=== PATIENT | female | born 1955 | race Caucasian/White ===

== ENCOUNTER 2020-12-16 09:04 | Inpatient (IN) ==
--- NOTE | 2020-12-16 09:19 | Emergency Department Note ---
History of Present Illness General Chief complaint: Dental/Oral Stated complaint: DENTAL PAIN INFECTED TOOTH Time Seen by Provider: 12/16/20 09:18 History of Present Illness Maximum Pain Intensity: 8 This is a 65-year-old female that presents to the emergency department via private vehicle with complaints of "dental pain, infected tooth". The patient notes that she recently returned to the area from [place] as of yesterday. She notes that she is visiting the area for short period of time. She states that this past she began with some pain to the right anterior face just to the lateral aspect of the nose and then notes that since then has had progression to include erythema and edema to the right side of the face. She now note swelling from the right eye tracking inferiorly to the right anterior neck region. She also notes some pain within the right side of the dentition. Current pain 03/20. She notes associated nausea. She denies any fevers, chills, shortness of breath. She attempted to reach out to dentistry however notes they are not open until Friday. She has an allergy to penicillin/amoxicillin. No drooling, trouble breathing or trouble swallowing. Home Medications Medication Instructions Recorded Confirmed Type acetaminophen [Tylenol] 650 mg PO QID PRN 12/16/20 12/16/20 History benazepril 20 mg PO BID 12/16/20 12/16/20 History hydrochlorothiazide 12.5 mg PO BID 12/16/20 12/16/20 History levothyroxine [Synthroid] 112 mcg PO DAILY 12/16/20 12/16/20 History Allergies Allergy/AdvReac Type Severity Reaction Status Date / Time amoxicillin Allergy Rash Unverified 12/16/20 10:38 Penicillins Allergy Rash Verified 12/16/20 09:12 Past Med/Surg History Medical History HTN (hypertension) Hypothyroidism Tooth infection Vitamin D deficiency Surgical History H/O tooth extraction Family History (Updated 12/16/20 @ 12:49 by PRISCILA Purdy) Mother COPD (chronic obstructive pulmonary disease) Heart disease Hypertension Dyslipidemia Social History Smoking Status: Former smoker Cigarettes Per Day: 0 - 1; Smoking End Date: 2016; Second Hand Exposure: No; Do You Dip or Chew Tobacco: No; Tobacco Cessation Education Requested by Patient: No Hx Alcohol Use: Yes Alcohol type: wine Hx Substance Use: No Preferred Language: P[place] Communication Ability: Effective Chemistry Manager Required: No Beliefs That Will Affect Care: None Current Living Situation: Spouse Other Information That Helps Us Care for You: No Feels Safe at Home: Yes Safety Concerns: Feels Safe At This Time Assistive Devices: Glasses Review of Systems A total of 10 systems reviewed and were otherwise negative Physical Exam Vital Signs Vital Signs - 24 hr 12/16/20 09:09 12/16/20 09:59 12/16/20 11:00 Temperature 36.2 C L Temperature Source Temporal Artery Scan Pulse Rate 92 H Pulse Rate [Right Finger] 86 88 Pulse Rhythm Regular Pulse Strength Normal Respiratory Rate 20 20 20 Respiratory Effort / Characteristics Non-Labored Spontaneous Non-Labored Spontaneous Non-Labored Spontaneous Respiratory Depth Normal Normal Normal Respiratory Pattern Regular Regular Regular Blood Pressure 142/86 H Blood Pressure [Right Arm] 132/82 141/86 H Blood Pressure Mean 104 Blood Pressure Mean [Right Arm] 98 104 Blood Pressure Position Sitting Blood Pressure Position [Right Arm] Lying Lying Pulse Oximetry 98 98 98 Oxygen Delivery Method Room Air Room Air Room Air Sepsis Recent Fever Within 48 Hours No Sepsis New/Unexplained Change in Mental Status No Sepsis Action Taken by Nursing No Action Required 12/16/20 11:29 12/16/20 12:00 12/16/20 12:30 Temperature Temperature Source Pulse Rate Pulse Rate [Right Finger] 88 92 H 88 Pulse Rhythm Pulse Strength Respiratory Rate 20 20 20 Respiratory Effort / Characteristics Non-Labored Spontaneous Non-Labored Spontaneous Non-Labored Spontaneous Respiratory Depth Normal Normal Normal Respiratory Pattern Regular Regular Regular Blood Pressure Blood Pressure [Right Arm] 139/94 147/101 H 151/91 H Blood Pressure Mean Blood Pressure Mean [Right Arm] 109 116 111 Blood Pressure Position Blood Pressure Position [Right Arm] Lying Lying Lying Pulse Oximetry 97 97 97 Oxygen Delivery Method Room Air Room Air Room Air Sepsis Recent Fever Within 48 Hours Sepsis New/Unexplained Change in Mental Status Sepsis Action Taken by Nursing VITAL SIGNS - Vital signs and nursing notes were reviewed. Stable and afebrile. GENERAL -65-year-old female appearing her stated age who is in no acute distress. Communicates well with provider and answers questions appropriately. SKIN -there is erythema with edema noted to the right periorbital region inferiorly tracking from that region inferior to the right anterior neck. This involves the right perioral region as well. HEAD - NC/AT. EYES - PERRL with EOMI bilaterally. Sclera anicteric. EARS - No deformities of external structures noted on gross examination bilaterally. NOSE - Midline and without cyanosis. No epistaxis or purulent drainage noted. Septum midline without deviation or septal hematoma noted. MOUTH/OROPHARYNX - Without perioral cyanosis. Buccal mucosa pink and moist and without leukoplakia. Tongue midline with equal elevation of palate bilaterally. No tonsillar hypertrophy, erythema, or exudates noted. Fair dentition noted. NECK - Neck with FROM. Supple to palpation. Mild right anterior cervical lymphadenopathy noted. No nuchal rigidity. Mild tenderness overlying the erythematous soft tissues on the right. LUNGS - Chest wall symmetric without accessory muscle use, intercostals retractions, or central cyanosis. Normal vesicular breath sounds CTA B/L. No wheezes, rales, or rhonchi appreciated. CARDIAC - RRR with S1/S2. No murmur, rubs, or gallops appreciated. NEUROLOGIC - Cranial nerves II through XII grossly intact. PSYCH - A&Ox3 and cooperates fully with examiner. Pt is very pleasant and interacts well with examiner. Course Administered Medications Chlorhexidine Gluconate (Chlorhexidine Gluconate 0.12% 480 Ml) 15 ml MT QID CARY Stop: 01/15/21 12:59 Last Admin: 12/16/20 16:04 Dose: 15 ml Documented by: [id number] Ibuprofen (Ibuprofen 600 Mg Tab) 600 mg PO Q6H PRN PRN Reason: pain or T >101.5 Stop: 01/15/21 13:26 Last Admin: 12/16/20 13:52 Dose: 600 mg Documented by: [id number] Discontinued Medications Ceftriaxone Sodium (Rocephin) 2,000 mg in 70 mls @ 140 mls/hr IV NOW STA Stop: 12/16/20 10:07 Last Infusion: 12/16/20 10:18 Dose: 0 mls/hr Documented by: [id number] Admin: 12/16/20 09:48 Dose: 140 mls/hr Documented by: [id number] Clindamycin Phosphate 600 mg/ (Dextrose) 54 mls @ 100 mls/hr IV ONE ONE Stop: 12/16/20 11:40 Last Infusion: 12/16/20 11:57 Dose: 0 mls/hr Documented by: [id number] Admin: 12/16/20 11:24 Dose: 100 mls/hr Documented by: [id number] Ioversol (Optiray 300 100ml) 90 ml IV ONCE ONE Stop: 12/16/20 09:35 Last Admin: 12/16/20 09:34 Dose: 90 ml Documented by: [id number] Medical Decision Making Laboratory Data Result diagrams: 12/16/20 09:22 12/16/20 09:22 Lab Results 12/16/20 12/16/20 12/16/20 Range/Units 09:22 09:22 09:22 WBC 6.04 (4.8-10.8) K/uL RBC 4.30 (4.2-5.4) M/uL Hgb 13.6 (12.0-16.0) g/dL Hct 40.6 (37-47) % MCV 94.4 (80-100) fL MCH 31.6 (25-34) pg MCHC 33.5 (32-36) g/dL RDW Std Deviation 45.4 (36.4-46.3) fL RDW Coeff of Ele 13.2 (11.5-14.5) % Plt Count 246 (130-400) K/uL MPV 11.3 H (7.4-10.4) fL Immature Gran % (Auto) 0.2 % Neut % (Auto) 72.8 % Lymph % (Auto) 13.6 % Daggett % (Auto) 12.9 % Eos % (Auto) 0.3 % Baso % (Auto) 0.2 % Neut # (Auto) 4.40 (1.4-6.5) K/uL Lymph # (Auto) 0.82 L (1.2-3.4) K/uL Daggett # (Auto) 0.78 H (0.11-0.59) K/uL Eos # (Auto) 0.02 (0-0.5) K/uL Baso # (Auto) 0.01 (0-0.2) K/uL Immature Gran # (Auto) 0.01 (0.00-0.02) K/uL Sodium 139 (136-145) mmol/L Potassium 3.2 L (3.5-5.1) mmol/L Chloride 104 (98-107) mmol/L Carbon Dioxide 29 (21-32) mmol/L Anion Gap 6.0 (3-11) BUN 12 (7-18) mg/dl Creatinine 1.03 (0.6-1.2) mg/dl Est Cr Clr Drug Dosing 71.0 ml/min Est GFR ( Amer) 66.5 Est GFR (Non-Af Amer) 57.4 BUN/Creatinine Ratio 11.3 (10-20) Glucose 96 (70-99) mg/dl Lactate (0.4-2.0) mmol/L Calcium 9.4 (8.5-10.1) mg/dl Total Bilirubin 0.7 (0.2-1) mg/dl AST 10 L (15-37) U/L ALT 15 (12-78) U/L Alkaline Phosphatase 102 (45-117) U/L Total Protein 7.8 (6.4-8.2) gm/dl Albumin 3.6 (3.4-5.0) gm/dl Globulin 4.2 H (2.5-4.0) gm/dl Albumin/Globulin Ratio 0.9 (0.9-2) Procalcitonin < 0.05 (0-0.5) ng/ml COVID-19 Eval Order SARS-CoV-2 (PCR) (Negative) Influenza Type A (PCR) (Neg) Influenza Type B (PCR) (Neg) RSV (RT-PCR) (Neg) 12/16/20 12/16/20 12/16/20 Range/Units 09:52 09:52 10:04 WBC (4.8-10.8) K/uL RBC (4.2-5.4) M/uL Hgb (12.0-16.0) g/dL Hct (37-47) % MCV (80-100) fL MCH (25-34) pg MCHC (32-36) g/dL RDW Std Deviation (36.4-46.3) fL RDW Coeff of Ele (11.5-14.5) % Plt Count (130-400) K/uL MPV (7.4-10.4) fL Immature Gran % (Auto) % Neut % (Auto) % Lymph % (Auto) % Daggett % (Auto) % Eos % (Auto) % Baso % (Auto) % Neut # (Auto) (1.4-6.5) K/uL Lymph # (Auto) (1.2-3.4) K/uL Daggett # (Auto) (0.11-0.59) K/uL Eos # (Auto) (0-0.5) K/uL Baso # (Auto) (0-0.2) K/uL Immature Gran # (Auto) (0.00-0.02) K/uL Sodium (136-145) mmol/L Potassium (3.5-5.1) mmol/L Chloride (98-107) mmol/L Carbon Dioxide (21-32) mmol/L Anion Gap (3-11) BUN (7-18) mg/dl Creatinine (0.6-1.2) mg/dl Est Cr Clr Drug Dosing ml/min Est GFR ( Amer) Est GFR (Non-Af Amer) BUN/Creatinine Ratio (10-20) Glucose (70-99) mg/dl Lactate 1.1 (0.4-2.0) mmol/L Calcium (8.5-10.1) mg/dl Total Bilirubin (0.2-1) mg/dl AST (15-37) U/L ALT (12-78) U/L Alkaline Phosphatase (45-117) U/L Total Protein (6.4-8.2) gm/dl Albumin (3.4-5.0) gm/dl Globulin (2.5-4.0) gm/dl Albumin/Globulin Ratio (0.9-2) Procalcitonin (0-0.5) ng/ml COVID-19 Eval Order CovFluRsv at [facility] SARS-CoV-2 (PCR) NEGATIVE (Negative) Influenza Type A (PCR) Negative (Neg) Influenza Type B (PCR) Negative (Neg) RSV (RT-PCR) Negative (Neg) Imaging Data Radiologist's Impression: Soft Tissue Neck CT 12/16/20 09:26 CT OF THE NECK WITH IV CONTRAST CLINICAL HISTORY: R facial and R neck edema, erythema COMPARISON STUDY: No previous studies for comparison. TECHNIQUE: Following IV administration of 90 mL of Optiray, helical axial images of the neck were obtained. Sagittal and coronal reconstructions were viewed. Automated exposure control was utilized for the study. A dose lowering technique was utilized adhering to the principles of ALARA. CT DOSE: 555.75 mGy.cm FINDINGS: Visualized portions of the intracranial contents are unremarkable. Lung apices are clear. There is no cervical lymphadenopathy. Epiglottis is normal. Major vasculature of the neck is patent. Note is made of moderate right facial infiltration overlying the right aspects of the mandible and maxilla. There is a cavity of the right maxillary first bicuspid. There is associated periapical lucency with suspected tiny overlying abscess along the anterior aspect of the maxilla that measures approximately 1 x 0.2 cm. No additional fluid collections are present. IMPRESSION: Right facial infiltration suggestive of cellulitis. This is likely odontogenic in etiology and likely related to a cavity of the right maxillary first bicuspid with tiny overlying abscess. ACT 112: Negative or not required by law. Electronically signed by: Paramjit Ford M.D. 12/16/2020 11:01 AM MDM Narrative Patient was seen and evaluated as above in room C02. Review was performed of nursing notes and vital signs. After obtaining a thorough history and physical examination the above work up was performed. Patient presents to us today with right-sided facial swelling, erythema. On examination there is a fair amount of erythema and edema to the right side of the face extending from the right inferior orbital region to the right anterior neck. There is no drooling, str idor, trismus or wheezing on exam. No tripoding. Options of care were discussed with the patient. There is a fair amount of what appears to be cellulitis on examination involving a large portion of the patient's face on the right side. Options of care were discussed with the patient. IV access established. Labs were drawn. There is no leukocytosis or anemia. Mild hypokalemia 3.2. Covid testing negative. Pro-Valdemar normal. Blood cultures pending. Lactic normal. CT scan as above. Right facial infiltration suggestive of cellulitis. Likely odontogenic in etiology. Given the extent and speed of progression I do believe that further evaluation and management in the inpatient setting is warranted. I discussed this recommendation to the patient. At this point I do not believe that it would be safe to discharge the patient with simple p.o. antibiotics, rather believe that further management here in the hospital is reasonable. She was given IV Rocephin and IV clindamycin here in the ED. Case was then discussed with the hospitalist. Please refer to further documentation regarding her stay. GCS: 15 In the evaluation and treatment of this patient, the following differential diagnoses were considered: Periapical Abscess, Osteonecrosis of the Jaw, Dental Fracture, Dental Caries, Kenneth's Angina, Vincent's Angina, Facial Cellulitis. Impression & Plan Cellulitis, face, Edema of face, Cellulitis of neck, Dental abscess Discharge Plan Visit Data Chief Complaint: Dental/Oral Stated Complaint: DENTAL PAIN INFECTED TOOTH ED Provider: Devante Mcclain ED Midlevel Provider: Cristian Beal Discharge Problem: Cellulitis, face, Edema of face, Cellulitis of neck, Dental abscess Patient Disposition: Admitted As Inpatient Condition: Good Discharge Instructions Interventions: ED Discharge Assessment Last Done: 12/16/20 13:04
[2020-12-16] MEDS ORDERED: OPTIRAY 300 100mL IV ONE (09:34)
[2020-12-16 09:36] LABS: Basophils # (auto) 0.01 K/uL (0-0.2); Basophils % (auto) 0.2 %; Eosinophils # (auto) 0.02 K/uL (0-0.5); Eosinophils % (auto) 0.3 %; Hematocrit (blood only) 40.6 % (37-47); Hemoglobin 13.6 g/dL (12.0-16.0); Immature Granulocytes # (auto) 0.01 K/uL (0.00-0.02); Immature Granulocytes % (auto) 0.2 %; Lymphocytes # (auto) 0.82 K/uL (1.2-3.4); Lymphocytes % (auto) 13.6 %; Mean Corpuscular Hemoglobin 31.6 pg (25-34); Mean Corpuscular Hgb Conc 33.5 g/dL (32-36); Mean Corpuscular Volume 94.4 fL (80-100); Mean Platelet Volume 11.3 fL (7.4-10.4); Monocytes # (auto) 0.78 K/uL (0.11-0.59); Monocytes % (auto) 12.9 %; Neutrophils % (auto) 72.8 %; Platelet Count 246 K/uL (130-400); RDW Coefficient of Variation 13.2 % (11.5-14.5); RDW Standard Deviation 45.4 fL (36.4-46.3); White Blood Count 6.04 K/uL (4.8-10.8)
[2020-12-16] MEDS ORDERED: cefTRIAXone SODIUM 2,000 MG/70 ML BAG IV STA (09:38)
[2020-12-16 09:54] LABS: Albumin Level 3.6 gm/dl (3.4-5.0); BUN Creatinine Ratio 11.3 (10-20); Calcium 9.4 mg/dl (8.5-10.1); Est GFR (African American) 66.5; Est GFR (Non-African American) 57.4; Potassium 3.2 mmol/L (3.5-5.1)
[2020-12-16 09:57] LABS: Albumin Globulin Ratio 0.9 (0.9-2); Bilirubin,Total 0.7 mg/dl (0.2-1); Globulin 4.2 gm/dl (2.5-4.0); Total Protein 7.8 gm/dl (6.4-8.2)
[2020-12-16 10:42] LABS: Influenza A virus by PCR Negative (Neg); Influenza B virus by PCR Negative (Neg); RSV by PCR Negative (Neg); SARS CoV2 RNA(COVID-19) InHosp NEGATIVE (Negative)
--- NOTE | 2020-12-16 11:02 | CT Scan Report ---
CT OF THE NECK WITH IV CONTRAST CLINICAL HISTORY: R facial and R neck edema, erythema COMPARISON STUDY: No previous studies for comparison. TECHNIQUE: Following IV administration of 90 mL of Optiray, helical axial images of the neck were ob tained. Sagittal and coronal reconstructions were viewed. Automated exposure control was utilized f or the study. A dose lowering technique was utilized adhering to the principles of ALARA. CT DOSE: 555.75 mGy.cm FINDINGS: Visualized portions of the intracranial contents are unremarkable. Lung apices are clear. There is no cervical lymphadenopathy. Epiglottis is normal. Major vasculature of the neck is patent. Note is made of moderate right facial infiltration overlying the right aspects of the mandible and ma xilla. There is a cavity of the right maxillary first bicuspid. There is associated periapical lucenc y with suspected tiny overlying abscess along the anterior aspect of the maxilla that measures approx imately 1 x 0.2 cm. No additional fluid collections are present. IMPRESSION: Right facial infiltration suggestive of cellulitis. This is likely odontogenic in etiolo gy and likely related to a cavity of the right maxillary first bicuspid with tiny overlying abscess. ACT 112: Negative or not required by law. Electronically signed by: Paramjit Ford M.D. 12/16/2020 11:01 AM
[2020-12-16] MEDS ORDERED: CLINDAMYCIN 600 MG in DEXTROSE 5% 50 ML IV ONE (11:08)
--- NOTE | 2020-12-16 12:30 | History & Physical Report ---
Date of Service December 16, 2020 Assessment & Plan (1) Tooth infection: Tooth #4-5 with erythema and small abscess noted on CT scan - erysipelas cellulitis as above - Clindamycin 450 mg PO q6 hours - Received 600 mg IV in the ER with decrease in erythema and lower lid involvement already - Blood cultures x2- however patient already received her IV clindamycin - Chlorhexidine Gluconate mouth swish and spit QID - Patient not from area is attempting to find local Dentist for appointment - Tylenol and Motrin for pain - Can apply Ice packs if desired - Can have regular diet, instructed to obviously chew and swallow on unaffected side. - If abscess becomes larger and/or complicated- consult EENT (2) HTN (hypertension): Continue Benazepril 20 BID Continue HCTZ 12.5 mg PO BID (3) Hypothyroidism: Continue Synthroid 112 MCG daily (4) DVT prophylaxis: SCD's, Lovenox, early ambulation CODE: FULL Admit for observation of resolution of cellulitis and systemic symptoms. History of Present Illness Primary Care Provider: NO PCP 65 YOF comes to the hospital this morning concern for facial swelling and tooth pain. The patient is not from the area, and was flying in from [place]. into Friday she was having increase in pain and discomfort to her right upper tooth #4-5 which is fractured. The patient thinks she did that a couple of months ago and unsure when. She was not having any difficulty until she was getting ready to leave for her flight. She felt like she was getting a sinus infection with some fullness to her maxillary and frontal sinus on the right side. She had some nasal congestion and fullness, she started some over the counter sinus medication and proceeded to her travel. The patient got here and started to notice some increasing redness to her face yesterday with pain to her sinuses and to her ear. She got up this morning with erythema to her right face and lower eyelid so she came to the emergency room. In the ER she had a soft tissue of the neck and face CT scan performed and was started on IV Clindamycin secondary to her allergy to PCN and Amoxicillin. Patient reports no bone pain just discomfort where her lymphnodes are. She has no difficulty swallowing. No evidence of sepsis or organ dysfunction on her labs or vital signs. Patient will be observed overnight for response to oral antibiotics. The patient is not immunocompromised, has a history of Hypothyroidism, and HTN. She is fully vaccinated for COVD 19 and her Influenza/RSV/COVID tests are negative Allergies Allergy/AdvReac Type Severity Reaction Status Date / Time amoxicillin Allergy Rash Unverified 12/16/20 10:38 Penicillins Allergy Rash Verified 12/16/20 09:12 Home Medications Medication Instructions Recorded Confirmed Type acetaminophen [Tylenol] 650 mg PO QID PRN 12/16/20 12/16/20 History benazepril 20 mg PO BID 12/16/20 12/16/20 History hydrochlorothiazide 12.5 mg PO BID 12/16/20 12/16/20 History levothyroxine [Synthroid] 112 mcg PO DAILY 12/16/20 12/16/20 History Past Med/Surg History Medical History (Updated 12/16/20 @ 13:03 by PRISCILA Purdy) HTN (hypertension) Hypothyroidism Tooth infection Vitamin D deficiency Surgical History (Updated 12/16/20 @ 12:42 by PRISCILA Purdy) H/O tooth extraction Family History (Updated 12/16/20 @ 12:49 by PRISCILA Purdy) Mother COPD (chronic obstructive pulmonary disease) Heart disease Hypertension Dyslipidemia Social History Smoking Status: Former smoker Cigarettes Per Day: 0 - 1; Smoking End Date: 2016; Second Hand Exposure: No; Do You Dip or Chew Tobacco: No; Tobacco Cessation Education Requested by Patient: No Hx Alcohol Use: Yes Alcohol type: wine Hx Substance Use: No Preferred Language: East Timorese Communication Ability: Effective 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 Beliefs That Will Affect Care: None Current Living Situation: Spouse Other Information That Helps Us Care for You: No Feels Safe at Home: Yes Safety Concerns: Feels Safe At This Time Assistive Devices: Glasses Review of Systems Review of Systems: REVIEW OF SYSTEMS: Constitutional: No fever, sweats or chills Eyes: (+) right face pain, No diplopia, no worsening or blurred vision ENT: (+) right ear discomfort, normal hearing, no trouble swallowing Respiratory: No cough, sputum, dyspnea at rest or on exertion Cardiovascular: No chest pain, tightness or palpitations Abdomen: No pain, nausea, vomiting, diarrhea or constipation Musculoskeletal: No joint pain, calf pain, swelling Neurologic: No weakness, numbness/tingling, or balance problems Psychiatric: No anxiety or depression Skin: (+) erythema and swelling to right face Physical Exam Physical Exam: PHYSICAL EXAM: General: awake, alert, no apparent distress Head: Normocephalic, atraumatic ENT: Erysipelas appearance to right lower eyelid, nasolabial, cheek and neck, enlarged tender lymph nodes to submandibular, anterior cervical, and right auricular lymph nodes, no pharyngeal exudate, right 4th or 5th tooth fracture, with erythema at the gum, small amount of purulence draining, mucous membranes moist. No difficulty swallowing, voice is normal. Neuro: AAO x 3, PERRL, EOMI, speech clear and appropriate, strength intact bilaterally 5/5, sensation intact and equal all extremities and dermatomes, no pronator drift Chest: equal rise and fall of the chest, no accessory muscle use, no heaves or thrills, Clear to auscultation, on room air, Cardiac: Regular rate and rhythm, telemetry reviewed, skin warm dry, cap refill <3 seconds, peripheral pulses +2 no JVD, no murmur, No edema GI: NABS x 4 quadrants, soft, nontender to palpation, no rebound, guarding or tenderness : Spontaneously voiding, no pain, no CVA tenderness, Extremities: Normal inspection, no peripheral edema or erythema, calfs nontender to palpation Psych: Normal mood and affect Skin: as above Results & Data Results & Data ([facility]) Vital Signs (Past 12 Hours) Vital Signs Temp Pulse Pulse Resp BP BP Pulse Ox 12/16/20 12:00 92 H 20 147/101 H 97 12/16/20 11:29 88 20 139/94 97 12/16/20 11:00 88 20 141/86 H 98 12/16/20 09:59 86 20 132/82 98 12/16/20 09:09 36.2 C L 92 H 20 142/86 H 98 Laboratory Results Abnormal lab results 12/16/20 12/16/20 Range/Units 09:22 09:22 MPV 11.3 H (7.4-10.4) fL Lymph # (Auto) 0.82 L (1.2-3.4) K/uL Door # (Auto) 0.78 H (0.11-0.59) K/uL Potassium 3.2 L (3.5-5.1) mmol/L AST 10 L (15-37) U/L Globulin 4.2 H (2.5-4.0) gm/dl Diagnostic Findings Soft Tissue Neck CT 12/16/20 09:26 CT OF THE NECK WITH IV CONTRAST CLINICAL HISTORY: R facial and R neck edema, erythema COMPARISON STUDY: No previous studies for comparison. TECHNIQUE: Following IV administration of 90 mL of Optiray, helical axial images of the neck were obtained. Sagittal and coronal reconstructions were viewed. Automated exposure control was utilized for the study. A dose lowering technique was utilized adhering to the principles of ALARA. CT DOSE: 555.75 mGy.cm FINDINGS: Visualized portions of the intracranial contents are unremarkable. Lung apices are clear. There is no cervical lymphadenopathy. Epiglottis is normal. Major vasculature of the neck is patent. Note is made of moderate right facial infiltration overlying the right aspects of the mandible and maxilla. There is a cavity of the right maxillary first bicuspid. There is associated periapical lucency with suspected tiny overlying abscess along the anterior aspect of the maxilla that measures approximately 1 x 0.2 cm. No additional fluid collections are present. IMPRESSION: Right facial infiltration suggestive of cellulitis. This is likely odontogenic in etiology and likely related to a cavity of the right maxillary first bicuspid with tiny overlying abscess. Electronically signed by: Paramjit Ford M.D. 12/16/2020 11:01 AM Medications Administered Discontinued Medications Ceftriaxone Sodium (Rocephin) 2,000 mg in 70 mls @ 140 mls/hr IV NOW STA Stop: 12/16/20 10:07 Last Infusion: 12/16/20 10:18 Dose: 0 mls/hr Documented by: [id number] Admin: 12/16/20 09:48 Dose: 140 mls/hr Documented by: [id number] Clindamycin Phosphate 600 mg/ (Dextrose) 54 mls @ 100 mls/hr IV ONE ONE Stop: 12/16/20 11:40 Last Admin: 12/16/20 11:24 Dose: 100 mls/hr Documented by: [id number] Ioversol (Optiray 300 100ml) 90 ml IV ONCE ONE Stop: 12/16/20 09:35 Last Admin: 12/16/20 09:34 Dose: 90 ml Documented by: [id number] Home Medications acetaminophen [Tylenol] 650 mg PO QID PRN 12/16/20 [History Confirmed 12/16/20] benazepril 20 mg PO BID 12/16/20 [History Confirmed 12/16/20] hydrochlorothiazide 12.5 mg PO BID 12/16/20 [History Confirmed 12/16/20] levothyroxine [Synthroid] 112 mcg PO DAILY 12/16/20 [History Confirmed 12/16/20] Active Medications Chlorhexidine Gluconate (Chlorhexidine Gluconate 0.12% 480 Ml) 15 ml MT QID CARY Stop: 01/15/21 12:59 ECG Additional Comments: No EKG Code Status & VTE Plan Code Status CODE: FULL VTE: SCD's, ambulation, Lovenox 40mg SubQ daily VTE Prophylaxis Plan VTE Prophylaxis will be ordered: Yes Supervising Physician Co-Signing Physician Notes Patient seen and examined with nurse practitioner, agree with his note above. Patient appears to have a dental infection from a right upper tooth. A CT scan results reviewed. Patient is having no warning signs symptoms such as difficulty swallowing or breathing. Exam is as noted above, patient has no evidence of drooling. Lungs are clear. Heart is regular no murmur. Plan to treat with oral clindamycin. Will observe overnight, if swelling improves, patient may be able to be discharged to close outpatient follow-up and eventual dental evaluation. PG Care Time/CCT Total # of Minutes Spent Total Time Spent with Patient: Total time spent is greater than 50% in coordination of care (as documented) at patient's floor/unit and/or counseling patient: Coding Level of Care Code 78118 OBS Care - Level 3 Diagnoses Tooth infection K04.7 HTN (hypertension) I10 Hypertension type: essential hypertension Hypothyroidism E03.9 Hypothyroidism type: unspecified DVT prophylaxis Z29.9 (1) Hypothyroidism Hypothyroidism type: unspecified Qualified Code(s): E03.9 - Hypothyroidism, unspecified (2) HTN (hypertension) Hypertension type: essential hypertension Qualified Code(s): I10 - Essential (primary) hypertension
[2020-12-16] MEDS ORDERED: IBUPROFEN 600 MG TAB PO PRN (13:27)
[2020-12-16] MEDS ORDERED: ACETAMINOPHEN 325 MG TAB PO PRN (13:27)
[2020-12-16] MEDS: CHLORHEXIDINE GLUCONATE 0.12% 480 ML MT SCH ×3 (16:04→21:15)
[2020-12-16] MEDS: ACETAMINOPHEN 325 MG TAB PO PRN ×2 (17:22→21:24)
[2020-12-16] MEDS ORDERED: CLINDAMYCIN HCL 150 MG CAP PO SCH (18:00)
[2020-12-16] MEDS: ENALAPRIL MALEATE 10 MG TAB PO SCH (21:16)
[2020-12-16] MEDS: hydroCHLOROthiazide 25 MG TAB PO SCH (21:17)
[2020-12-17] MEDS: CLINDAMYCIN HCL 150 MG CAP PO SCH ×2 (00:45→05:46)
[2020-12-17] MEDS: LEVOTHYROXINE SODIUM 112 MCG TABLET PO SCH (05:45)
[2020-12-17] MEDS: ACETAMINOPHEN 325 MG TAB PO PRN (05:49)
[2020-12-17 06:27] LABS: Basophils # (auto) 0.01 K/uL (0-0.2); Basophils % (auto) 0.2 %; Eosinophils # (auto) 0.06 K/uL (0-0.5); Hematocrit (blood only) 38.8 % (37-47); Hemoglobin 12.7 g/dL (12.0-16.0); Immature Granulocytes # (auto) 0.01 K/uL (0.00-0.02); Immature Granulocytes % (auto) 0.2 %; Lymphocytes % (auto) 17.2 %; Mean Corpuscular Hgb Conc 32.7 g/dL (32-36); Mean Corpuscular Volume 94.6 fL (80-100); Mean Platelet Volume 11.1 fL (7.4-10.4); Monocytes # (auto) 0.42 K/uL (0.11-0.59); Monocytes % (auto) 7.2 %; Neutrophils # (auto) 4.33 K/uL (1.4-6.5); Neutrophils % (auto) 74.2 %; Platelet Count 251 K/uL (130-400); RDW Coefficient of Variation 13.3 % (11.5-14.5); RDW Standard Deviation 45.8 fL (36.4-46.3); White Blood Count 5.83 K/uL (4.8-10.8)
[2020-12-17 07:03] LABS: BUN Creatinine Ratio 16.1 (10-20); Calcium 9.3 mg/dl (8.5-10.1); Creatinine Clr Calc Pharmacy 79.6 ml/min; Est GFR (African American) 76.3; Est GFR (Non-African American) 65.8; Magnesium 1.9 mg/dl (1.8-2.4); Potassium 3.9 mmol/L (3.5-5.1)
--- NOTE | 2020-12-17 07:41 | Hospitalist Progress Note ---
Date of Service December 17, 2020 Assessment & Plan (1) Tooth infection: Cracked tooth for several weeks prior, now with increased pain/erythema/swelling Erysipelas secondary to dental abscess Soft Tissue Neck CT-- Right facial infiltration suggestive of cellulitis. This is likely odontogenic in etiology and likely related to a cavity of the right maxillary first bicuspid with tiny overlying abscess. OMFS consulted -- plans for OR this afternoon for tx of abscess On Clindamycin due to allergies --> switched to IV while awaiting OR Made NPO NS@75cc/hr x 1 L while NPO --> can d/c following surgery if able to take PO Tylenol IV ordered while npo and morphine for breakthrough pain Blood cultures from ER pending and were repeated by admission team -- follow Chlorhexidine Gluconate mouth swish and spit QID Ice packs if needed EKG pre-op NSR, reported nonspecific T wave abn but looks good, 90bpm. Pre-op CXR pending but sounded good on examination, no abn Labs in AM Hopeful for d/c tomorrow morning if stable (2) HTN (hypertension): Chronic -- low this AM 100/57 On Benazepril 20 BID, HCTZ 12.5mg BID -- will hold and resume in AM if BP tolerates and BMP stable Continue to monitor (3) Hypothyroidism: Continue Synthroid 112 MCG daily (4) DVT prophylaxis: SCD's, Lovenox, early ambulation CODE: FULL Dispo: from [place], [place] this afternoon with Dr. Menon for abscess/tooth extraction Changed to full admission Would like to go home tomorrow morning if stable. (5) Cellulitis, face: (6) Fascial space infection of mouth: Admission and Anticipated Discharge Date Admission Date: December 16, 2020 Subjective Patient evaluated this morning. Doing better. Got tylenol this morning and pain from 10 to 4/10. Erythema improved, less swelling. wash tank tender around infected tooth which has been cracked for some time but never caused issue in the past. Bad experience with hydromorphone in the past. Will order morphine if needed while NPO and utilize oxycodone as needed. Tylenol also available for baseline control. No fever, chills, chest pain, shortness of breath, difficulty swallowing or clearing secretions, abdominal pain, nausea or vomiting or urinary symptoms. She initially thought it was a sinus infection and had been taking OTC sinus decongestant. OR planned this afternoon. She is hopeful for discharge tomorrow morning. Review of Systems Review of Systems: All systems reviewed & are unremarkable except as noted in HPI & below Physical Exam Physical Exam: PHYSICAL EXAM: General: awake, alert, no apparent distress sitting up in bed Head: Normocephalic, atraumatic ENT: Erysipelas appearance to right lower eyelid, nasolabial, cheek and neck, enlarged tender lymph nodes to submandibular, anterior cervical, and right auricular lymph nodes (IMPROVED, LESS ERYTHEMA/SWELLING, SALESPERSON MEN'S HATS IN COLOR), no pharyngeal exudate, right 4th or 5th tooth fracture, with erythema at the gum with fluctuant area surrounding with erythema. No obvious purulant drainage.mucous membranes moist. No difficulty swallowing, voice is normal. Neuro: AAO x 3, PERRL, EOMI, speech clear and appropriate, strength intact bilaterally 5/5, sensation intact and equal all extremities and dermatomes, no pronator drift Chest: equal rise and fall of the chest, no accessory muscle use, no heaves or thrills, Clear to auscultation, on room air, Cardiac: Regular rate and rhythm, telemetry reviewed, skin warm dry, cap refill <3 seconds, peripheral pulses +2 no JVD, no murmur, No edema GI: NABS x 4 quadrants, soft, nontender to palpation, no rebound, guarding or tenderness : Spontaneously voiding, no pain, no CVA tenderness, Extremities: Normal inspection, no peripheral edema or erythema, calfs nontender to palpation Psych: Normal mood and affect Skin: as above Results & Data Results & Data ([facility]) Vital Signs (Past 12 Hours) Vital Signs Temp Pulse Resp BP Pulse Ox 12/16/20 22:10 36.9 C 80 17 105/70 97 Laboratory Results 12/17/20 12/17/20 12/16/20 Range/Units 06:16 06:16 10:04 WBC 5.83 (4.8-10.8) K/uL RBC 4.10 L (4.2-5.4) M/uL Hgb 12.7 (12.0-16.0) g/dL Hct 38.8 (37-47) % MCV 94.6 (80-100) fL MCH 31.0 (25-34) pg MCHC 32.7 (32-36) g/dL RDW Std Deviation 45.8 (36.4-46.3) fL RDW Coeff of Ele 13.3 (11.5-14.5) % Plt Count 251 (130-400) K/uL MPV 11.1 H (7.4-10.4) fL Immature Gran % (Auto) 0.2 % Neut % (Auto) 74.2 % Lymph % (Auto) 17.2 % [place] % (Auto) 7.2 % Eos % (Auto) 1.0 % Baso % (Auto) 0.2 % Neut # (Auto) 4.33 (1.4-6.5) K/uL Lymph # (Auto) 1.00 L (1.2-3.4) K/uL [place] # (Auto) 0.42 (0.11-0.59) K/uL Eos # (Auto) 0.06 (0-0.5) K/uL Baso # (Auto) 0.01 (0-0.2) K/uL Immature Gran # (Auto) 0.01 (0.00-0.02) K/uL Sodium 136 (136-145) mmol/L Potassium 3.9 D (3.5-5.1) mmol/L Chloride 101 (98-107) mmol/L Carbon Dioxide 30 (21-32) mmol/L Anion Gap 4.0 (3-11) BUN 15 (7-18) mg/dl Creatinine 0.92 (0.6-1.2) mg/dl Est Cr Clr Drug Dosing 79.6 ml/min Est GFR ( Amer) 76.3 Est GFR (Non-Af Amer) 65.8 BUN/Creatinine Ratio 16.1 (10-20) Glucose 111 H (70-99) mg/dl Lactate 1.1 (0.4-2.0) mmol/L Calcium 9.3 (8.5-10.1) mg/dl Magnesium 1.9 (1.8-2.4) mg/dl Total Bilirubin (0.2-1) mg/dl AST (15-37) U/L ALT (12-78) U/L Alkaline Phosphatase (45-117) U/L Total Protein (6.4-8.2) gm/dl Albumin (3.4-5.0) gm/dl Globulin (2.5-4.0) gm/dl Albumin/Globulin Ratio (0.9-2) Procalcitonin (0-0.5) ng/ml COVID-19 Eval Order SARS-CoV-2 (PCR) (Negative) Influenza Type A (PCR) (Neg) Influenza Type B (PCR) (Neg) RSV (RT-PCR) (Neg) 12/16/20 12/16/20 12/16/20 Range/Units 09:52 09:52 09:22 WBC (4.8-10.8) K/uL RBC (4.2-5.4) M/uL Hgb (12.0-16.0) g/dL Hct (37-47) % MCV (80-100) fL MCH (25-34) pg MCHC (32-36) g/dL RDW Std Deviation (36.4-46.3) fL RDW Coeff of Ele (11.5-14.5) % Plt Count (130-400) K/uL MPV (7.4-10.4) fL Immature Gran % (Auto) % Neut % (Auto) % Lymph % (Auto) % [place] % (Auto) % Eos % (Auto) % Baso % (Auto) % Neut # (Auto) (1.4-6.5) K/uL Lymph # (Auto) (1.2-3.4) K/uL [place] # (Auto) (0.11-0.59) K/uL Eos # (Auto) (0-0.5) K/uL Baso # (Auto) (0-0.2) K/uL Immature Gran # (Auto) (0.00-0.02) K/uL Sodium (136-145) mmol/L Potassium (3.5-5.1) mmol/L Chloride (98-107) mmol/L Carbon Dioxide (21-32) mmol/L Anion Gap (3-11) BUN (7-18) mg/dl Creatinine (0.6-1.2) mg/dl Est Cr Clr Drug Dosing ml/min Est GFR ( Amer) Est GFR (Non-Af Amer) BUN/Creatinine Ratio (10-20) Glucose (70-99) mg/dl Lactate (0.4-2.0) mmol/L Calcium (8.5-10.1) mg/dl Magnesium (1.8-2.4) mg/dl Total Bilirubin (0.2-1) mg/dl AST (15-37) U/L ALT (12-78) U/L Alkaline Phosphatase (45-117) U/L Total Protein (6.4-8.2) gm/dl Albumin (3.4-5.0) gm/dl Globulin (2.5-4.0) gm/dl Albumin/Globulin Ratio (0.9-2) Procalcitonin < 0.05 (0-0.5) ng/ml COVID-19 Eval Order CovFluRsv at [facility] SARS-CoV-2 (PCR) NEGATIVE (Negative) Influenza Type A (PCR) Negative (Neg) Influenza Type B (PCR) Negative (Neg) RSV (RT-PCR) Negative (Neg) 12/16/20 12/16/20 Range/Units 09:22 09:22 WBC 6.04 (4.8-10.8) K/uL RBC 4.30 (4.2-5.4) M/uL Hgb 13.6 (12.0-16.0) g/dL Hct 40.6 (37-47) % MCV 94.4 (80-100) fL MCH 31.6 (25-34) pg MCHC 33.5 (32-36) g/dL RDW Std Deviation 45.4 (36.4-46.3) fL RDW Coeff of Ele 13.2 (11.5-14.5) % Plt Count 246 (130-400) K/uL MPV 11.3 H (7.4-10.4) fL Immature Gran % (Auto) 0.2 % Neut % (Auto) 72.8 % Lymph % (Auto) 13.6 % [place] % (Auto) 12.9 % Eos % (Auto) 0.3 % Baso % (Auto) 0.2 % Neut # (Auto) 4.40 (1.4-6.5) K/uL Lymph # (Auto) 0.82 L (1.2-3.4) K/uL [place] # (Auto) 0.78 H (0.11-0.59) K/uL Eos # (Auto) 0.02 (0-0.5) K/uL Baso # (Auto) 0.01 (0-0.2) K/uL Immature Gran # (Auto) 0.01 (0.00-0.02) K/uL Sodium 139 (136-145) mmol/L Potassium 3.2 L (3.5-5.1) mmol/L Chloride 104 (98-107) mmol/L Carbon Dioxide 29 (21-32) mmol/L Anion Gap 6.0 (3-11) BUN 12 (7-18) mg/dl Creatinine 1.03 (0.6-1.2) mg/dl Est Cr Clr Drug Dosing 71.0 ml/min Est GFR ( Amer) 66.5 Est GFR (Non-Af Amer) 57.4 BUN/Creatinine Ratio 11.3 (10-20) Glucose 96 (70-99) mg/dl Lactate (0.4-2.0) mmol/L Calcium 9.4 (8.5-10.1) mg/dl Magnesium (1.8-2.4) mg/dl Total Bilirubin 0.7 (0.2-1) mg/dl AST 10 L (15-37) U/L ALT 15 (12-78) U/L Alkaline Phosphatase 102 (45-117) U/L Total Protein 7.8 (6.4-8.2) gm/dl Albumin 3.6 (3.4-5.0) gm/dl Globulin 4.2 H (2.5-4.0) gm/dl Albumin/Globulin Ratio 0.9 (0.9-2) Procalcitonin (0-0.5) ng/ml COVID-19 Eval Order SARS-CoV-2 (PCR) (Negative) Influenza Type A (PCR) (Neg) Influenza Type B (PCR) (Neg) RSV (RT-PCR) (Neg) PG Care Time/CCT Total # of Minutes Spent Total Time Spent with Patient: Total time spent is greater than 50% in coordination of care (as documented) at patient's floor/unit and/or counseling patient: Coding Level of Care Code 42615 Subseq Hosp Care Lvl 3 Diagnoses Tooth infection K04.7 HTN (hypertension) I10 Hypertension type: essential hypertension Hypothyroidism E03.9 Hypothyroidism type: unspecified DVT prophylaxis Z29.9 Cellulitis, face L03.211 Fascial space infection of mouth K12.2 (1) Hypothyroidism Hypothyroidism type: unspecified Qualified Code(s): E03.9 - Hypothyroidism, unspecified (2) HTN (hypertension) Hypertension type: essential hypertension Qualified Code(s): I10 - Essential (primary) hypertension
--- NOTE | 2020-12-17 08:36 | Oral/Maxillofacial Consult ---
Date of Consultation December 17, 2020 Assessment & Plan (1) Fascial space infection of mouth: (2) Fractured tooth: History of Present Illness Attending Physician: Domo Martin MD Oral Maxillofacial Surgery Exam Present Complaint: I have pain/swelling/drainage from my infected tooth upper right and facial swelling Symptoms started a few days ago and getting worse - now swollen and hard area nosalabial area right side, swelling vestibule upper right Oral Exam: Finding--swollen and tender gingival tissue with deep pocket formation.Infected and fractured # 5 removal is clinical indicated. Imaging: CT see report-- Soft tissue: floor of the mouth, tongue, hard/soft palate, posterior pharyngeal area all with in normal limits, no pathology or abnormal findings noted. No lesions noted that require follow up or Bx. area of concern upper intraoral/ nasolabial space right side Oral Care: Overall oral care is good Occlusion: Class I TMJ exam: No pop, clicking, pain, good ROM, No history of TMJ injury or dysfunction Periodontal exam: Healthy gingival tissue without evidence of periodontal pathology Noted localized issue associated with the fractured # 5 Head/Neck exam: Neck is supple, FROM, Able to extend and flex neck w/o difficulty, no masses, no abnormalities, no airway issues Treatment Plan: Set up with general anesthesia in hospital to drain the infected spaces and extraction of # 5 I reviewed the treatment plan and consent with the patient Understanding was expressed. Time was given for questions regarding the surgery, risks and post op care. Discussed alternative to treatment--NONE The need for an I&D with extraction of # 5 is indicated and medically necessary. Risks discussed: Pain,swelling,infection, dry socket, delayed healing, nerve injury to face,lips,tongue,chin area which could be permanent (rare). TMJ, jaw stiffness, change in bite (rare), ear pain (referred). Sinus problems like fistula or infection. Need to leave a small root fragment in place to avoid injury to nerve or sinus. Home care reviewed: tooth brushing, rinsing, follow up care with Dr Menon. diet=[id number] dental. Discussed activity level, driving/work while on Rx pain Meds. Surgery to be set up today as per OR She may be able to be D/C tomorrow AM Allergies Allergy/AdvReac Type Severity Reaction Status Date / Time amoxicillin Allergy Rash Unverified 12/16/20 10:38 Penicillins Allergy Rash Verified 12/16/20 09:12 Home Medications Medication Instructions Recorded Confirmed Type acetaminophen [Tylenol] 650 mg PO QID PRN 12/16/20 12/16/20 History benazepril 20 mg PO BID 12/16/20 12/16/20 History hydrochlorothiazide 12.5 mg PO BID 12/16/20 12/16/20 History levothyroxine [Synthroid] 112 mcg PO DAILY 12/16/20 12/16/20 History Patient History Medical History HTN (hypertension) Hypothyroidism Tooth infection Vitamin D deficiency Surgical History H/O tooth extraction Family History (Updated 12/16/20 @ 12:49 by PRISCILA Purdy) Mother COPD (chronic obstructive pulmonary disease) Heart disease Hypertension Dyslipidemia Social History Smoking Status: Former smoker Cigarettes Per Day: 0 - 1; Smoking End Date: 2016; Second Hand Exposure: No; Do You Dip or Chew Tobacco: No; Tobacco Cessation Education Requested by Patient: No Hx Alcohol Use: Yes Alcohol type: wine Hx Substance Use: No Preferred Language: Cambodian Communication Ability: Effective Prepress Proofer Required: No Beliefs That Will Affect Care: None Current Living Situation: Spouse Other Information That Helps Us Care for You: No Feels Safe at Home: Yes Safety Concerns: Feels Safe At This Time Assistive Devices: Glasses Results & Data ([facility]) Vital Signs (Past 12 Hours) Vital Signs Temp Pulse Resp BP BP Pulse Ox 12/17/20 08:13 36.7 C 74 16 100/57 L 96 12/16/20 22:10 36.9 C 80 17 105/70 97 PG Care Time/CCT Total # of Minutes Spent Total Time Spent with Patient: Total time spent is greater than 50% in coordination of care (as documented) at patient's floor/unit and/or counseling patient: Coding Level of Care Code 28720 Inpt Consult Level 3 Diagnoses Fascial space infection of mouth K12.2 Fractured tooth S02.5XXS Encounter type: sequela Fracture type: open (1) Fractured tooth Encounter type: sequela Fracture type: open Qualified Code(s): S02.5XXS - Fr acture of tooth (traumatic), sequela
[2020-12-17] MEDS: CHLORHEXIDINE GLUCONATE 0.12% 480 ML MT SCH ×4 (09:03→21:56)
[2020-12-17] MEDS ORDERED: ACETAMINOPHEN 10MG/ML PEDIATRIC DOSING IV PRN (10:03)
[2020-12-17] MEDS ORDERED: MoRPHine SULFATE 2 MG/ML CARP IV PRN (10:03)
--- NOTE | 2020-12-17 10:37 | Anesthesiology Consultation ---
Date of Service December 17, 2020 Assessment & Plan (1) Encounter for pre-operative examination: Chart Review Chart Review: data entry specialist initiated History Surgery Operation Date: 12/17/20 12:00 Proposed Procedures p Complete Bony Impaction(Right) - Rio Menon DMD Height/Weight Height: 5 ft 5 in Weight: 118.6 kg Allergies Allergy/AdvReac Type Severity Reaction Status Date / Time amoxicillin Allergy Rash Unverified 12/16/20 10:38 Penicillins Allergy Rash Verified 12/16/20 09:12 Medications Home Medications Medication Instructions Recorded Confirmed Last Taken acetaminophen [Tylenol] 650 mg PO QID PRN 12/16/20 12/16/20 12/16/20 325 mg benazepril 20 mg PO BID 12/16/20 12/16/20 12/16/20 hydrochlorothiazide 12.5 mg PO BID 12/16/20 12/16/20 12/16/20 levothyroxine [Synthroid] 112 mcg PO DAILY 12/16/20 12/16/20 12/16/20 Active Medications Generic Name Dose Route Start Last Admin Trade Name Freq PRN Reason Stop Dose Admin Acetaminophen 650 mg 12/16/20 13:27 12/17/20 05:49 Acetaminophen 325 Mg Tab PO 01/15/21 13:26 650 mg Q4H PRN Administration pain/fever Chlorhexidine Gluconate 15 ml 12/16/20 13:00 12/17/20 09:03 Chlorhexidine Gluconate 0.12% 480 Ml MT 01/15/21 12:59 15 ml QID CARY Administration Enalapril Maleate 20 mg 12/16/20 21:00 12/16/20 21:16 Enalapril Maleate 10 Mg Tab PO 01/15/21 20:59 20 mg BID CARY Administration Hydrochlorothiazide 12.5 mg 12/16/20 21:00 12/16/20 21:17 Hydrochlorothiazide 25 Mg Tab PO 01/15/21 20:59 12.5 mg BID CARY Administration Ibuprofen 600 mg 12/16/20 13:27 12/16/20 13:52 Ibuprofen 600 Mg Tab PO 01/15/21 13:26 600 mg Q6H PRN Administration pain or T >101.5 Levothyroxine Sodium 112 mcg 12/17/20 06:30 12/17/20 05:45 Levothyroxine Sodium 112 Mcg Tablet PO 01/16/21 06:29 112 mcg DAILYBB CARY Administration NPO Date Last Intake of Fluids: 12/17/20 Time Last Intake of Fluids: 05:49 Date Last Intake of Solids: 12/17/20 Time Last Intake of Solids: 05:49 Last Intake of Solids Comment: ate 3 crackers with tylenol po Past Medical History Medical History HTN (hypertension) Hypothyroidism Tooth infection Vitamin D deficiency Past Family History Family History Mother COPD (chronic obstructive pulmonary disease) Heart disease Hypertension Dyslipidemia Past Surgical History Surgical History H/O tooth extraction Social History Smoking Status: Former smoker tobacco type: cigarettes Smoking cigarettes per day: 0 - 1 Do You Dip or Chew Tobacco: No Smoking End Date: 2016 Hx Alcohol Use: Yes Alcohol type: wine alcohol intake frequency: a few times a month Hx Substance Use: No Physical Exam Vital Signs Last Vital Signs Temp 98.1 F 12/17/20 08:13 Pulse 74 12/17/20 08:13 Resp 16 12/17/20 08:13 BP 100/57 L 12/17/20 08:13 Pulse Ox 96 12/17/20 08:13 Testing Laboratory Results 12/17/20 06:16 12/17/20 06:16 Electrocardiogram Date: 12/17/20 Normal sinus rhythm, rate 90 bpm Nonspecific T wave abnormality Abnormal ECG No previous ECGs available
[2020-12-17] MEDS: hydroCHLOROthiazide 25 MG TAB PO SCH ×2 (11:10→21:57)
[2020-12-17] MEDS: ENALAPRIL MALEATE 10 MG TAB PO SCH ×2 (11:10→21:57)
[2020-12-17] MEDS: SODIUM CHLORIDE 0.9% 1000ML 1,000 ML IV SCH ×2 (11:18→17:26)
--- NOTE | 2020-12-17 11:57 | Electrocardiogram Report ---
Test Reason : Blood Pressure : / mmHG Vent. Rate : 090 BPM Atrial Rate : 090 BPM P-R Int : 174 ms QRS Dur : 068 ms QT Int : 396 ms P-R-T Axes : 034 -11 029 degrees QTc Int : 484 ms Poor data quality, interpretation may be adversely affected Normal sinus rhythm Nonspecific T wave abnormality Abnormal ECG No previous ECGs available Confirmed by Marco Fuchs ([id number]) on 12/17/2020 11:56:55 AM Referred By: REFERRED SELF Confirmed By:Marco Fuchs
--- NOTE | 2020-12-17 12:26 | XRay Report ---
SINGLE VIEW CHEST CLINICAL HISTORY: Preoperative examination. Reported history of hypertension and hypothyroidism. [facility] history. FINDINGS: An AP, portable, upright chest radiograph is obtained. No prior studies are available for c omparison at the time of dictation. The cardiomediastinal silhouette is unremarkable. There is eleva tion of the right hemidiaphragm with right basilar atelectasis. The lungs and pleural spaces are othe rwise clear. No pneumothorax is seen. The skeletal structures are osteopenic. The bony thorax is french sly intact. Surgical clips are noted in the upper abdomen. IMPRESSION: No active disease in the chest. ACT 112: Negative or not required by law. Electronically signed by: Doug Duarte M.D. 12/17/2020 12:24 PM
[2020-12-17] MEDS ORDERED: ePHEDrine sulfate 50 MG/ML AMP IV PRN (12:32)
[2020-12-17] MEDS ORDERED: ATROPINE SULFATE 0.1 MG/ML 10ML SYR IV PRN (12:32)
[2020-12-17] MEDS ORDERED: ONDANSETRON INJ 2 MG/ML 2 ML VIAL IV PRN (12:32)
[2020-12-17] MEDS ORDERED: MIDAZOLAM HCL 1 MG/ML 2ML VIAL ONE (12:56)
[2020-12-17] MEDS ORDERED: fentaNYL citrate 100 MCG/2 ML VIAL ONE ×3 (12:56→14:17)
[2020-12-17] MEDS ORDERED: LIDOCAINE HCL 2% 2 ML VIAL/AMP(20MG/ML) INFIL ONE ×2 (12:57)
[2020-12-17] MEDS ORDERED: PROPOFOL IV EMULSION 10 MG/ML 20 ML VIAL IV ONE (12:57)
[2020-12-17] MEDS ORDERED: SUCCINYLCHOLINE CHLORIDE 20 MG/ML 10 ML VIAL IV ONE (12:57)
--- NOTE | 2020-12-17 13:06 | History & Physical Bridge Note ---
Date of Service December 17, 2020 History & Physical Bridge Note I have examined the patient, reviewed the History & Physical and in the interval since the performance of the History & Physical I have noted the following changes of clinical significance: no changes noted
[2020-12-17] MEDS ORDERED: BUPIVACAINE/EPINEPHRINE 0.5% 1:200,000 1.8 ML CARP ONE (13:15)
[2020-12-17] MEDS ORDERED: ROCURONIUM BROMIDE 10 MG/ML 5 ML VIAL IV ONE (13:22)
[2020-12-17] MEDS ORDERED: CLINDAMYCIN PHOS 300 MG/2 ML VIAL ONE (13:25)
[2020-12-17] MEDS ORDERED: CLINDAMYCIN 600 MG/54 ML BAG IV ONE (13:38)
--- NOTE | 2020-12-17 14:10 | Anesthesiology Progress Note ---
Date of Service December 17, 2020 Anesthesia Post Procedure Vital Signs Vital Signs: Temp Pulse Resp BP BP Pulse Ox 12/17/20 08:13 98.1 F 74 16 100/57 L 96 12/16/20 22:10 98.4 F 80 17 105/70 97 12/16/20 19:13 98.4 F 86 18 91/60 L 94 12/16/20 15:54 98.4 F 90 18 103/70 96 Pain Intensity Jaw: Pain Intensity: 4 Transfer of Care Handoff Completed per policy Notes Mental Status: alert / awake / arousable and participated in evaluation Patient Amnestic to Procedure: Yes Nausea / Vomiting: adequately controlled Pain: adequately controlled Airway Patency, RR, SpO2: stable & adequate BP & HR: stable & adequate Hydration State: stable & adequate Anesthetic Complications: no major complications apparent and Pt Satisfied with anesthetic care
[2020-12-17] MEDS: fentaNYL citrate 100 MCG/2 ML VIAL IV PRN ×4 (14:17→14:32)
--- NOTE | 2020-12-17 14:25 | Operative Report ---
PG Post Operative Report Pre & Post Diagnosis Operation Date: 12/17/20 12:00 Pre-Op Diagnosis: Fascial space infection of mouth, Fractured tooth Post-Op Diagnosis: Fascial space infection of mouth, Fractured tooth I identified the patient and participated in the time-out.: Yes Procedure Operation Date: 12/17/20 12:00 Actual Procedures p Facial Incision and Drainage, Extraction of Tooth #5 (Right) - Rio Menon DMD Actual Procedures p Incision and Drainage infraorbital (right side) Abscess; Removal of Tooth #5(Not Applicable) - Rio Menon DMD Once cleared for surgery general anesthesia was achieved, the eyes were protected by the anesthesia dept criteria. A time out was take for patient ID, antibiotics, equipment and position verification once all agreed the procedure began. Local anesthesia using Marcaine with a vasoconstrictor ( 1.8 ml per site) given into right maxilla and palate A throat pack was placed after the oral cavity was irrigated with saline. Once a surgical level of anesthesia was obtained and the local anesthesia was given time for the blocks the surgery was started. I turned my attention to the infection which was located in naso-labial and infraorbital area right side Vestibule of the mouth area #3-7 The right eye , nose, cheek was also swollen associated with tooth # 5 which was fractured and abscessed ( see CT scan report) Incision and Drainage Using a 15 blade an incision was made around the fractured # 5 from area # 3-7 the flap was reflected exposing the necrotic bone which was curetted out. Once the incision was made a lot of pus extruded from the site. This drainage was cultured for anaerobic and aerobic bacteria. A curved hemostat was carefully placed into the infected space along the side of the nose up to the infraorbital area--more pus was expressed. Some further drainage was now allowed to escape. I palpated the lateral nose, cheek and vestibule area and no further drainage was expressed. The area was irrigated with at least 100 ml of NS solution. I now turned my attention to remove the # 5 tooth. Upper tooth # 5 The full thick Muco-periosteal flap was made on the facial aspect from # 3-7 . The flap was reflected to expose the the subperiosteal space the bone adjacent to # 5. The bone was very necrotic and the total facial plate of the bone was non existant with a large bony defect of the roots of # 5 The rouges was used to remove the necrotic bone until health bone was noted. The tooth was removed with a 301 elevator and forceps, there was a large amount of granulation tissue on the apex and some more pus that was expressed--once completed the area was free of infected bone or chronic tissue. Closure was obtained with a few 2-0 chromic sutures When all procedure was over I inspected the site to insure all bleeding was controlled. I removed the throat pack and suctioned the throat. A gauze pressure dressings was placed. All instrument and sponge count was correct. the patient was allowed to awake from the anesthesia. Once full awake the anesthesia tube was removed and the patient was taken to the recovery room with all vital sign stable. The patient tolerated the surgery very well. I will follow the patient in my office, Rx and instructions will be given upon discharge. Surgeon Rio Menon, DMD [employer] Lead none Estimated Blood Loss 1 Findings Consistent with Post-Op Diagnosis Specimens C&S drainage upper right side Description of Procedure I&D right cheek and infraorbital area extraction # 5 I attest to the content of the Intraoperative Record and any orders documented therein. Any exceptions are noted below.
[2020-12-17] MEDS: CLINDAMYCIN 600 MG in DEXTROSE 5% 50 ML IV SCH ×2 (15:20→21:52)
[2020-12-17] MEDS: ENOXAPARIN INJ 40 MG/0.4 ML SYR SQ SCH (15:49)
[2020-12-18] MEDS: CLINDAMYCIN 600 MG in DEXTROSE 5% 50 ML IV SCH (05:39)
[2020-12-18] MEDS: LEVOTHYROXINE SODIUM 112 MCG TABLET PO SCH (05:39)
[2020-12-18 06:41] LABS: Hemoglobin 11.5 g/dL (12.0-16.0); Immature Granulocytes # (auto) 0.01 K/uL (0.00-0.02); Immature Granulocytes % (auto) 0.1 %; Lymphocytes # (auto) 0.77 K/uL (1.2-3.4); Lymphocytes % (auto) 10.3 %; Mean Corpuscular Hgb Conc 32.9 g/dL (32-36); Mean Corpuscular Volume 94.3 fL (80-100); Mean Platelet Volume 10.9 fL (7.4-10.4); Neutrophils # (auto) 6.13 K/uL (1.4-6.5); Neutrophils % (auto) 81.6 %; Platelet Count 266 K/uL (130-400); Red Blood Count 3.71 M/uL (4.2-5.4); White Blood Count 7.51 K/uL (4.8-10.8)
[2020-12-18 07:09] LABS: BUN Creatinine Ratio 15.2 (10-20); Calcium 8.7 mg/dl (8.5-10.1); Est GFR (African American) 99.2; Est GFR (Non-African American) 85.6; Magnesium 1.8 mg/dl (1.8-2.4); Potassium 3.8 mmol/L (3.5-5.1)
[2020-12-18] MEDS: CHLORHEXIDINE GLUCONATE 0.12% 480 ML MT SCH (08:34)
[2020-12-18] MEDS: ENOXAPARIN INJ 40 MG/0.4 ML SYR SQ SCH (08:35)
--- NOTE | 2020-12-18 08:38 | Oral/Maxillofacial Progress Nt ---
Date of Service Post op day # 1 Doing very well swelling now soft and less then yesterday Pain --controlled OK for D?C today--I will see in my office on December 21 at 2:30 Rx Vicodin, Clindamycin 300 , Peridex and Zofran Discharge info. completed December 18, 2020 Assessment & Plan Admission and Anticipated Discharge Date Admission Date: December 17, 2020 Results & Data ([facility]) Vital Signs (Past 12 Hours) Vital Signs Temp Pulse Resp BP Pulse Ox 12/18/20 06:58 36.7 C 78 16 117/79 94 12/18/20 02:50 36.6 C 82 16 130/85 95 12/17/20 22:30 36.8 C 86 17 111/74 93 PG Care Time/CCT Total # of Minutes Spent Total Time Spent with Patient: Total time spent is greater than 50% in coordination of care (as documented) at patient's floor/unit and/or counseling patient: Coding Level of Care Code 90359 Subseq Hosp Care Lvl 1
--- NOTE | 2020-12-18 09:00 | Discharge Summary ---
Date of Service December 18, 2020 Admission HPI Per Admitting Provider 65 YOF comes to the hospital this morning concern for facial swelling and tooth pain. The patient is not from the area, and was flying in from [place]. into Friday she was having increase in pain and discomfort to her right upper tooth #4-5 which is fractured. The patient thinks she did that a couple of months ago and unsure when. She was not having any difficulty until she was getting ready to leave for her flight. She felt like she was getting a sinus infection with some fullness to her maxillary and frontal sinus on the right side. She had some nasal congestion and fullness, she started some over the counter sinus medication and proceeded to her travel. The patient got here and started to notice some increasing redness to her face yesterday with pain to her sinuses and to her ear. She got up this morning with erythema to her right face and lower eyelid so she came to the emergency room. In the ER she had a soft tissue of the neck and face CT scan performed and was started on IV Clindamycin secondary to her allergy to PCN and Amoxicillin. Patient reports no bone pain just discomfort where her lymphnodes are. She has no difficulty swallowing. No evidence of sepsis or organ dysfunction on her labs or vital signs. Patient will be observed overnight for response to oral antibiotics. The patient is not immunocompromised, has a history of Hypothyroidism, and HTN. She is fully vaccinated for COVD 19 and her Influenza/RSV/COVID tests are negative Principal Diagnosis Right tooth #5 abscess with cellulitis Discharge Exam Constitutional WD/WN, vitals as above ENMT Mouth: + dental caries, + poor dentition and + chipped teeth Throat: uvula midline Neck trachea midline, no thyromegaly Respiratory normal respiratory effort, lungs clear to auscultation Cardiovascular RRR, no murmur, no edema Gastrointestinal (Abdomen) normal bowel sounds, soft, nontender, no hepatosplenomegaly Musculoskeletal no cyanosis or clubbing, extremities motor strength 5/5 Skin no rashes, warm and dry Neurologic patellar DTR's 2+ bilat, sensation intact and PERRL, EOMI, accommodation nl, no face palsy, no dysarthria Psychiatric A+Ox3, euthymic affect Lymphatic no cervical or axillary lymphadenopathy Discharge Data Allergies Allergy/AdvReac Type Severity Reaction Status Date / Time amoxicillin Allergy Rash Unverified 12/16/20 10:38 Penicillins Allergy Rash Verified 12/16/20 09:12 Consultations 12/16/20 11:26 ED Decision to Admit Stat 12/16/20 14:12 Consult Oromaxillofacial Surgery Routine Procedures Performed Operation Date: 12/17/20 12:00 Actual Procedures p Facial Incision and Drainage, Extraction of Tooth #5(Right) - Rio Almeida DMD Ordered Studies 12/16/20 09:26 CT soft tissue neck w con Stat Hospital Course (1) Tooth infection: Cracked tooth for several weeks prior, now with increased pain/erythema/swelling Erysipelas secondary to dental abscess Soft Tissue Neck CT-- Right facial infiltration suggestive of cellulitis. This is likely odontogenic in etiology and likely related to a cavity of the right maxillary first bicuspid with tiny overlying abscess. Dr. Almeida took to OR on 12/17 for Incision and drainage of tooth #5 abscess patient feeling much better today, less pain and swelling discharge instructions completed by Dr. Almeida plan for Clindamycin PO, Vicodin PRN for pain, Chlorhexidine mouthwash will follow up with Dr. Almeida on 12/21/20 (2) HTN (hypertension): continue Benazepril 20 BID, HCTZ 12.5mg BID (3) Hypothyroidism: Continue Synthroid 112 MCG daily (4) DVT prophylaxis: SCD's, Lovenox, early ambulation CODE: FULL (5) Cellulitis, face: (6) Fascial space infection of mouth: Total Time Total Time Spent Total Time Spent (In Minutes): 20 Total Time Includes: Examination of the Patient, Medication Reconciliation and Communication With Other Providers Discharge Plan Discharge Items Patient Disposition: Home - Self-Care Reason For Visit: facial swelling,tooth infection Discharge Diagnosis: s/p facial from a fractured/infected upper tooth # 5 Condition on Discharge: Good Activity: Resume your previous activity Lifting: Gradually increase as tolerated Bathing: No limitations Exercise/Sports: Gradually increase as tolerated Driving/Machine Use: Resume 1 day after discharge Weightbearing: Full weightbearing Non-emergency contact: Surgeon Call non-emergency contact if: your temperature is above 101.5, your wound has increased redness, your wound has increased drainage and your wound pain has increased Follow-up/Referrals: Rio Almeida DMD [Physician] - 12/21/20 2:30 pm PCP,NO [Primary Care Provider] - Diet: Regular Diet Texture: Easy to Chew Addtl Attending Provider Instructions: ADDITIONAL ACTIVITY RECOMMENDATIONS: * Wingate teeth after every meal. It is very important to keep your mouth clean to prevent infection. * Starting tonight rinse with the Peridex as directed then 2 x a day * it is very important to keep well hydrated, this prevents fever and possible dry socket pain SPECIAL CARE INSTRUCTIONS: *It is not uncommon that between day 2-4 that your swelling will be at its worst this is very normal, do not be alarmed. * For the next few apply heat (hot water bottle or heating pad) for the next two days, as often as possible. Massage your face * Tomorrow start rinsing your mouth with 1/2 teaspoon salt in 8 ounces warm water. This rinse should be used every 4-6 hours. * You may experience slight nausea. To prevent this, never take your medication on an empty stomach. If nauseated, take small sips of brianda christiano until you feel better; then you may start on applesauce and toast. * Some swelling is common. It should gradually decrease within 4-5 days. * A certain amount of bleeding is to be expected. It is often possible to control mild oozing by placing folded gauze over the area and biting down for 30 minutes. If you are unable to control excessive bleeding, call Dr Almeida at [phone] * You may experience some discomfort for a few days. If pain or swelling increases, Call Dr Almeida * Return to the office for a follow up check up if one was given to you. FOLLOW UP APPOINTMENT WITH DR AMLEIDA FridayDECEMBER 21 AT 2:30 PM [address] * If you do not have a follow up appointment please call the office at [phone] and set one up for 10-15 days after your surgery Pending Studies at Discharge: Yes Studies:: RESULTS OF THE CULTURES Stand-Alone Forms: My [employer], Smoking Cessation Medications and DC Order Prescriptions: Continued hydrocodone-acetaminophen 5-325 mg tablet 1 tab PO Q4H PRN (Reason: pain) Qty: 14 RF: 0 clindamycin HCl 300 mg capsule 300 mg PO Q8H 7 Days Qty: 21 RF: 0 ondansetron HCl 8 mg tablet 8 mg PO Q8H PRN (Reason: nausea and vomiting) Qty: 10 RF: 0 acetaminophen [Tylenol] 325 mg Tablet 650 mg PO QID PRN (Reason: Pain) RF: 0 benazepril 20 mg tablet 20 mg PO BID RF: 0 levothyroxine [Synthroid] 112 mcg Tablet 112 mcg PO DAILY RF: 0 hydrochlorothiazide 12.5 mg tablet 12.5 mg PO BID RF: 0 Discharge Orders: Discharge Order (Routine); Ordered 12/18/20 Ordered By: Rio Almeida Admission Data Admit Date/Time: 12/17/20 10:15 Attending Provider: Primitivo Oliveros Admit Provider: Moses Price Primary Care Provider: PCP,NO Other Providers: Willam Eid ; Moses Price ; Rio Almeida Coding Level of Care Code D/C Day Management <30 mins Diagnoses Tooth infection K04.7 HTN (hypertension) I10 Hypertension type: essential hypertension Hypothyroidism E03.9 Hypothyroidism type: unspecified DVT prophylaxis Z29.9 Cellulitis, face L03.211 Fascial space infection of mouth K12.2
== END 2020-12-18 09:58 | disposition home or self-care (01) | DRG 580 ==
LOC: 3N 09:04 → ED 09:04 → SUATTDRO 12:35 → 3N 13:04 → SUATTDRO 12-17 10:15